=== PATIENT | female | born 1980 ===

== ENCOUNTER 2020-11-27 07:50 | Outpatient (REF) | payer OTHER, SELFPAY ==
--- NOTE | ~2020-11-27 | MM_ITS ---
EXAMINATION: MM SCREENING DIGITAL BREAST TOMOSYNTHESIS, BILATERAL CLINICAL INFORMATION: Screening. Asymptomatic. Age 40. No known family history breast cancer. No prior mammography. The lifetime risk of breast cancer based on the Tyrer-Cuzick Model is 8%. COMPARISON: None (current study represents initial baseline exam). TECHNIQUE: Digital breast tomosynthesis is performed in both the craniocaudal and mediolateral oblique views along with computer-aided detection (CAD). Synthesized 2D images are generated from the tomosynthesis. FINDINGS: The breasts are heterogeneously dense, which may obscure small masses (ACR BI-RADS breast composition Category c). There is no significant mass or architectural abnormality. The axillary and skin contours are unremarkable. There are bilateral similar appearing punctate calcifications in the central and anterior breasts. No three-dimensional grouping or ductal distribution. MM/MM tomosynthesis screening BI IMPRESSION: No mammographic evidence of malignancy. ASSESSMENT: BI-RADS 2: Benign RECOMMENDATION: Routine annual mammography screening. This patient's information was entered into a reminder system with a target due date for their next mammogram.
== END 2020-11-27 07:51 | disposition home or self-care (01) ==
LOC: HO.MAMMO 07:50
PROVIDERS: PCP Internal Medicine; Visit Provider Internal Medicine
DX: Z12.31 Encounter for screening mammogram for malignant neoplasm of breast (principal)
CPT/HCPCS: 77063; 77067

== ENCOUNTER 2020-12-11 10:54 | Outpatient (REF) | payer OTHER, SELFPAY ==
[2020-12-11 11:07] LABS: MANUAL DIFF FLAG NO
[2020-12-11 11:18] LABS: Basophils Absolute Auto 0.1 X10*3/uL (0.0-0.2); Basophils Percent Auto 0.6 % (0-2); Eosinophils Absolute Auto 0.1 X10*3/uL (0.0-0.4); Eosinophils Percent Auto 1.2 % (0-4); Hematocrit 40.1 % (37-47); Hemoglobin 12.8 g/dl (12.0-16.0); Imm Gran Abs Auto 0.03 X10*3/uL (0.00-0.03); Imm Gran Pct Auto 0.3 % (0.0-0.4); Lymphocytes Absolute Auto 2.6 X10*3/uL (1.2-4.9); Mean Corpuscular HGB Conc 31.9 g/dl (31.0-35.0); Mean Corpuscular Hemoglobin 26.1 pg (27.0-33.0); Mean Corpuscular Volume 81.7 fL (80-98); Mean Platelet Volume 9.4 fL (9.4-12.3); Monocytes Absolute Auto 0.5 X10*3/uL (0.1-1.2); Monocytes Percent Auto 5.3 % (2-11); Neutrophils Absolute Auto 5.6 X10*3/uL (2.0-8.3); Neutrophils Percent Auto 63.6 % (45-73); Platelet Count 344 X10*3/uL (160-400); Red Blood Count 4.91 X10*6/uL (4.20-5.50); Red Cell Distribution Width 13.6 % (11.0-16.0); White Blood Count 8.9 X10*3/uL (4.8-10.8)
[2020-12-11 11:30] LABS: Alanine Aminotransferase 20 U/L (0-31); Alkaline Phosphatase 78 U/L (39-117); Anion Gap 9 (12-20); Aspartate Amino Transferase 23 U/L (5-31); Bilirubin Total 0.4 mg/dL (0.0-1.0); Blood Urea Nitrogen 15 mg/dL (9-16); Calcium 8.8 mg/dL (8.4-10.2); Carbon Dioxide 26 mmol/L (22-29); Chloride 109 mmol/L (96-108); Cholesterol 176 mg/dL; Estimated Glomerular Filt Rate > 60; Glucose Fasting 96 mg/dL (60-99); HDL Cholesterol 44 mg/dL; LDL Cholesterol Calculated 123 mg/dl; Potassium 4.5 mmol/L (3.3-5.1); Sodium 139 mmol/L (135-145); Total Protein 6.6 g/dL (6.5-8.0); Triglycerides 46 mg/dL
[2020-12-11 11:52] LABS: TSH reflex Free T4 0.88 uIU/mL (0.32-4.0); Vitamin D 25-OH Total 33.5 ng/mL (>30)
== END 2020-12-11 10:55 | disposition home or self-care (01) ==
LOC: HO.LAB 10:54
PROVIDERS: PCP Internal Medicine; Visit Provider Internal Medicine
DX: Z00.01 Encounter for general adult medical examination with abnormal findings (principal); R61 Generalized hyperhidrosis
CPT/HCPCS: 36415; 80053; 80061; 82306; 84443; 85025

== ENCOUNTER 2022-11-03 10:12 | Outpatient (AMB) | payer OTHER, SELFPAY ==
[2022-11-03 10:15] VITALS: BP 112/88; PULSE 80; O2SAT 100; BMI 32.5
--- NOTE | 2022-11-03 10:15 | A.OFFPC_ITS ---
<Statement entered by Deepali Juarez MD - 12/03/24 15:13> This note has been administratively?closed. Vital Signs 11/03/22 10:15 Height 5 ft 1 in Weight 172 lb 0.2 oz BMI 32.5 BP 112/88 Blood Pressure Location Lt brachial Position Sitting Pulse 80 Pulse Source Pulse Oximeter Pulse Oximetry (%) 100 Oxygen Delivery Method Room Air Intake Visit Reasons: PE Intake Note: Patient is here today for a physical. She had her last mammogram in 2020, reminded to schedule another screening. Goes to her own OBGYN for her routine Pap and pelvic exam, last Pap per patient was in 2020 with normal findings. Currently sees [facility] for treatment of her seasonal allergies.. 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 [facility] Medical History Family history of thyroid disease COVID-19 vaccine dose declined Varicose veins of bilateral lower extremities with other complications Anxiety and depression Family history of Hodgkin's lymphoma History of COVID-19 Allergic rhinitis Pain in left acromioclavicular joint Sweat, sweating, excessive Breast cancer screening by mammogram Surgical History No pertinent past surgical history Family History Father Medical history non-contributory Mother AIDS Paternal Grandmother Diabetes mellitus Hodgkin lymphoma Paternal Grandfather Medical history non-contributory Brother No problems noted. Brother No problems noted. Brother No problems noted. Brother No problems noted. Sister No problems noted. Sister No problems noted. Sister No problems noted. Sister No problems noted. Son No problems noted. Paternal Aunt Diabetes mellitus Social History Housing: House Alcohol intake: current Alcohol intake frequency: a few times a month Patient Tobacco Use Status: Never used Tobacco e-Cigarette/Vaping Use: Never Used Advance Directives: No Advance Directives Information Provided: No Do you have a plan to hurt others: No Plan service: No Current occupational status: employed Cognitive needs: No Hearing needs: No Vision needs: No Female Reproductive History Menstrual Date of last menstrual period: 10/21/22 Date of last pap smear: 12/01/20 History of abnormal pap smear: No Date of Mammogram: 12/28/20 History of abnormal mammogram: No Questionnaire PHQ-9 Over the last 2 weeks, how often have you been bothered by any of the following problems? 1. Little interest or pleasure in doing things: not at all 2. Feeling down, depressed, or hopeless: several days 3. Trouble falling or staying asleep, or sleeping too much: not at all 4. Feeling tired or having little energy: several days 5. Poor appetite or overeating: not at all 6. Feeling bad about yourself - or that you are a failure or have let yourself or your family down: not at all 7. Trouble concentrating on things, such as reading the newspaper or watching television: not at all 8. Moving or speaking so slowly that other people could have noticed. Or the opposite - being so fidgety or restless that you have been moving around a lot more than usual: not at all 9. Thoughts that you would be better off or of hurting yourself in some way: not at all Total score: 2 Depression Screening Interpretation: Positive Source: Developed by Drs. Juan Zimmerman, Clari Crews, Norberto Arreola and colleagues, with an educational paco from [employer]. Thrive Questionnaire Declines Thrive assessment: No Date Thrive assessed: 11/03/22 I am a: Patient What is your living situation today?: I have a steady place to live Within the past 12 months, did the food you bought not last and you didn't have the money to get more?: Never true Within the past 12 months, did you worry whether your food would run out before you got money to buy more?: Never true Do you have trouble paying for medicines?: No Do you have trouble getting transportation to medical appointments?: No Do you have trouble paying your heating and electricity bill?: No Do you have trouble taking care of your child, family member or friend?: No Do you have trouble with day-to-day activities such as bathing, preparing meals, shopping, managing finances, etc.?: No Are you currently unemployed and looking for a job?: No Are you interested in more education?: No AUDIT C Alcohol Use Questionnaire (AUDIT-C) 1. How often do you have a drink containing alcohol?: Monthly or less (social ) 2. How many drinks containing alcohol do you have on a typical day when you are drinking?: 1 or 2 3. How often do you have six or more drinks on one occasion?: Never Total Score: 1 TOPHER-7 AMB Questionnaire TOPHER-7 Date TOPHER - 7 assessed: 11/03/22 Feeling nervous, anxious, or on edge: 1 = Several days Not being able to stop or control worryin = Not at all Worrying too much about different things: 2 = More than half the days Trouble relaxin = Not at all Being so restless that it is hard to sit still: 0 = Not at all Becoming easily annoyed or irritable: 1 = Several days Feeling afraid as if something awful might happen: 1 = Several days Total TOPHER-7 score (0-4 normal; 5-9 mild; 10-14 moderate; 15-21 severe): 5 Source: Developed by Drs. Juan Zimmerman, Clari Crews, Norberto Arreola and colleagues, with an educational paco from [employer]. Review of Systems Const Denies body aches, Denies fatigue, Denies fever(s), Denies headache(s) and Den ies weakness Eyes Denies change in vision ENT Denies dizziness, Denies headache(s) and Denies nasal congestion Card Denies chest pain, Denies lightheadedness, Denies palpitations and Denies dyspnea Resp Denies chest congestion, Denies cough and Denies dyspnea GI Denies abdominal pain, Denies change in bowel habits and Denies heartburn Skin/Breast Denies rash Neuro Denies dizziness, Denies headache(s) and Denies weakness Endo Denies fatigue and Denies palpitations Rylan/Lymph Denies easy bruising Physical exam (Primary Care) Vital Signs: Last Vital Signs Pulse 80 11/03/22 10:15 BP 112/88 11/03/22 10:15 Pulse Ox 100 11/03/22 10:15 Oxygen Delivery Method Room Air 11/03/22 10:15 BMI result Body Mass Index 32.5 Tobacco/Smoking Status: Tobacco use Status Tobacco use date assessed 11/03/22 11/03/22 10:22 Patient Tobacco Use Status Never used Tobacco 11/03/22 10:22 e-Cigarette/Vaping Use Never Used 11/03/22 10:22 PHQ-9: PHQ-9 Score PHQ-9: Total score 2 11/06/22 05:06 Depression Screening Interpretation: Positive Thrive Assessment: Date of Thrive Assessment Date Thrive assessed 11/03/22 11/03/22 10:30 Assessment and Plan Assessment & Plan (1) Adult general medical exam: Code(s): Z00.00 - Encounter for general adult medical examination without abnormal findings Plan: Will check appropriate labs. Advised to do regular dental visit every 6 months and regular eye exams, at least every 2 years. Take adequate calcium in diet and vitamin-D 3 at 2000 IU per cap once a day, in addition to weight-bearing exercises to help maintain good muscle tone and weight control. Instructed to do self-breast exam, and recommended to get yearly mammogram, (2) Family history of Hodgkin's lymphoma: Code(s): Z80.7 - Family history of other malignant neoplasms of lymphoid, hematopoietic and related tissues Plan: Oncology consult, per patient (3) Anxiety and depression: Code(s): F41.9 - Anxiety disorder, unspecified; F32.A - Depression, unspecified (4) Varicose veins of bilateral lower extremities with other complications: Code(s): I83.893 - Varicose veins of bilateral lower extremities with other complications (5) COVID-19 vaccine dose declined: Code(s): Z28.21 - Immunization not carried out because of patient refusal (6) Allergic rhinitis: Comment: Followed by Dr. Mccord at [facility] Code(s): J30.9 - Allergic rhinitis, unspecified Qualifiers: Allergic rhinitis trigger: unspecified Allergic rhinitis seasonality: unspecified Qualified Code(s): J30.9 - Allergic rhinitis, unspecified Plan: Currently followed by software computer specialist (7) Family history of thyroid disease: Code(s): Z83.49 - Family history of other endocrine, nutritional and metabolic diseases Plan: Check TSH and free T4 Orders: Orders Glucose Fasting 11/03/22 Z00.00 - Encounter for general adult medical examination without abnormal findings TSH reflex Free T4 11/03/22 Z83.49 - Family history of other endocrine, nutritional and metabolic diseases Lipid Panel 11/03/22 Z00.00 - Encounter for general adult medical examination without abnormal findings Complete Blood Count Auto Diff 11/03/22 I83.893 - Varicose veins of bilateral lower extremities with other complications, Z80.7 - Family history of other malignant neoplasms of lymphoid, hematopoietic and related tissues, Z00.00 - Encounter for general adult medical examination without abnormal findings Referrals Vascular Surgery Referral I83.893 - Varicose veins of bilateral lower extremities with other complications Hematology & Oncology Referral Z80.7 - Family history of other malignant neoplasms of lymphoid, hematopoietic and related tissues Coding Level of Care Code Est Pt Prev Care 40-64y(14665) Diagnoses Adult general medical exam Z00.00 Family history of Hodgkin's lymphoma Z80.7 Anxiety and depression F41.9; F32.A Varicose veins of bilateral lower extremities with other complications I83.893 COVID-19 vaccine dose declined Z28.21 Allergic rhinitis, unspecified seasonality, unspecified trigger J30.9 Allergic rhinitis trigger: unspecified Allergic rhinitis seasonality: unspecified Family history of thyroid disease Z83.49
== END 2022-11-03 11:26 | disposition home or self-care (01) ==
LOC: HO.HMGC 10:12
PROVIDERS: PCP Internal Medicine; Visit Provider Internal Medicine
DX: Z00.00 Encounter for general adult medical examination without abnormal findings (principal); Z80.7 Family history of other malignant neoplasms of lymphoid, hematopoietic and related tissues; F41.9 Anxiety disorder, unspecified; F32.A Depression, unspecified; I83.893 Varicose veins of bilateral lower extremities with other complications; Z28.21 Immunization not carried out because of patient refusal; J30.9 Allergic rhinitis, unspecified; Z83.49 Family history of other endocrine, nutritional and metabolic diseases
CPT/HCPCS: 99499

== ENCOUNTER 2022-11-03 11:16 | Outpatient (REF) | payer OTHER, SELFPAY ==
[2022-11-03 13:51] LABS: MANUAL DIFF FLAG NO
[2022-11-03 14:03] LABS: Basophils Absolute Auto 0.1 X10*3/uL (0.0-0.2); Basophils Percent Auto 0.7 % (0-2); Eosinophils Absolute Auto 0.2 X10*3/uL (0.0-0.4); Eosinophils Percent Auto 2.9 % (0-4); Hematocrit 40.9 % (37.0-47.0); Imm Gran Abs Auto 0.02 X10*3/uL (0.00-0.03); Imm Gran Pct Auto 0.3 % (0.0-0.4); Lymphocytes Absolute Auto 2.4 X10*3/uL (1.2-4.9); Lymphocytes Percent Auto 31.9 % (20-40); Mean Corpuscular HGB Conc 31.8 g/dl (31.0-35.0); Mean Corpuscular Hemoglobin 25.7 pg (27.0-33.0); Mean Platelet Volume 10.2 fL (9.4-12.3); Monocytes Absolute Auto 0.4 X10*3/uL (0.1-1.2); Monocytes Percent Auto 5.1 % (2-11); Neutrophils Absolute Auto 4.5 x10*3/uL (2.0-8.3); Neutrophils Percent Auto 59.1 % (45-73); Platelet Count 325 X10*3/uL (160-400); Red Blood Count 5.05 X10*6/uL (4.20-5.50); Red Cell Distribution Width 12.9 % (11.0-16.0); White Blood Count 7.6 X10*3/uL (4.8-10.8)
[2022-11-03 14:31] LABS: Cholesterol 181 mg/dL; Glucose Fasting 90 mg/dL (60-99); HDL Cholesterol 45 mg/dL; LDL Cholesterol Calculated 127 mg/dl; Triglycerides 49 mg/dL
== END 2022-11-03 11:17 | disposition home or self-care (01) ==
LOC: HO.HMGCLDS 11:16
PROVIDERS: PCP Internal Medicine; Visit Provider Internal Medicine
DX: Z00.00 Encounter for general adult medical examination without abnormal findings (principal); I83.893 Varicose veins of bilateral lower extremities with other complications; Z80.7 Family history of other malignant neoplasms of lymphoid, hematopoietic and related tissues; Z83.49 Family history of other endocrine, nutritional and metabolic diseases
CPT/HCPCS: 36415; 80061; 82947; 84443; 85025

== ENCOUNTER 2023-03-19 16:53 | Outpatient (REF) | payer OTHER, SELFPAY ==
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
== END 2023-03-19 16:54 | disposition home or self-care (01) ==
LOC: HO.XRAY 16:53
PROVIDERS: PCP Internal Medicine; Visit Provider Physical Medicine & Rehabilitation
DX: M25.512 Pain in left shoulder (principal)
CPT/HCPCS: 73030

== ENCOUNTER 2023-05-31 17:47 | Outpatient (REF) | payer OTHER, SELFPAY ==
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
== END 2023-05-31 17:48 | disposition home or self-care (01) ==
LOC: HO.MRI 17:47
PROVIDERS: PCP Internal Medicine; Visit Provider Physical Medicine & Rehabilitation
DX: M25.512 Pain in left shoulder (principal)
CPT/HCPCS: 73221

== ENCOUNTER 2023-12-05 21:54 | Emergency (ER) | payer OTHER, SELFPAY ==
[2023-12-05 21:57] VITALS: BP 138/87; PULSE 70; RESP 16; TEMP 35.7; O2SAT 100; BMI 30.8
[2023-12-05 22:21] LABS: COVID-19 Test Negative (Negative); IDNOW Serial# 6674DD1D
--- NOTE | 2023-12-06 05:41 | ED.GENADULT ---
HPI - General Adult General Chief complaint: General Medical Stated complaint: covid swab Time Seen by Provider: 12/06/23 05:41 Source: patient Mode of arrival: ambulatory History of Present Illness HPI narrative: 43-year-old female who reports COVID exposure on Sunday and a but denies any symptoms at this time. Related Data Previous Rx's ?Medication ?Instructions ?Recorded ibuprofen 800 mg tablet 800 mg PO Q8H PRN pain 7 days #21 01/31/23 tabs tizanidine 4 mg tablet (Zanaflex) 4 mg PO BID PRN muscle spasticity 01/31/23 5 days #10 tabs Allergies Allergy/AdvReac Type Severity Reaction Status Date / Time No Known Allergies Allergy Verified 12/05/23 21:59 Review of Systems Review of Systems: Pertinent positives and negatives as stated in [facility] Past Medical History Source: nursing notes reviewed Medical History Family history of thyroid disease COVID-19 vaccine dose declined Varicose veins of bilateral lower extremities with other complications Anxiety and depression Family history of Hodgkin's lymphoma History of COVID-19 Allergic rhinitis Pain in left acromioclavicular joint Sweat, sweating, excessive Breast cancer screening by mammogram Surgical History No pertinent past surgical history Family History Family History Father Medical history non-contributory Mother AIDS Paternal Grandmother Diabetes mellitus Hodgkin lymphoma Paternal Grandfather Medical history non-contributory Brother No problems noted. Brother No problems noted. Brother No problems noted. Brother No problems noted. Sister No problems noted. Sister No problems noted. Sister No problems noted. Sister No problems noted. Son No problems noted. Paternal Aunt Diabetes mellitus Social History Social History Housing: House Alcohol intake: current Alcohol intake frequency: a few times a month Patient Tobacco Use Status: Never used Tobacco e-Cigarette/Vaping Use: Never Used Advance Directives: No Advance Directives Information Provided: No Do you have a plan to hurt others: No Plan service: No Current occupational status: employed Cognitive needs: No Hearing needs: No Vision needs: No Physical Exam ED Vital Signs: Vital Signs - 24 hr 12/05/23 21:57 Temperature 96.2 F L Pulse Rate 70 Respiratory Rate 16 Blood Pressure 138/87 Pulse Oximetry 100 Oxygen Delivery Method Room Air BMI result Body Mass Index 30.8 VITAL SIGNS: Reviewed. GENERAL: Well developed, well nourished, in no acute distress. HEAD: Normocephalic/atraumatic EYES: PERRLA, EOMI LUNGS: Normal breath sounds. No adventitious sounds or accessory muscle use. SpO2<100> CARDIOVASCULAR: Regular rate and rhythm without noted murmurs, ABDOMEN: Soft, non-tender, non-distended with bowel sounds. NEUROLOGIC: Alert and oriented x 4. Strength and sensation to light touch were grossly intact x 4. Medical Decision Making Medical Decision Making [facility] Narrative: 43-year-old female with history and clinical presentation of possible exposure, viral testing today is negative for COVID-19, patient was cautioned to retest in the next 2 days. Differential Diagnosis Differential Diagnoses: The differential diagnosis associated with the presentation includes Please see the discussion above Admission/Observation Consideration of admission/observation: Escalation of care including admission/observation considered Please see the discussion above Lab Data [facility] Lab Attestation statement: I reviewed the patient's lab results. Please see the discussion above Labs: Lab Results 12/05/23 Range/Units 22:04 COVID-19 ([place]) Negative (Negative) COVID-19 Clin Com See Note Discharge Plan Discharge Clinical Impression: Exposure to COVID-19 virus Patient Disposition: Home, Self-Care Instructions: COVID-19 (Coronavirus Disease 2019) (ED) Additional Instructions: Although you have tested negative for COVID-19 today, should you experience any viral-like symptoms please retest yourself. Prescriptions: No Action ibuprofen 800 mg tablet 800 mg PO Q8H PRN (Reason: pain) 7 Days Qty: 21 0RF tizanidine [Zanaflex] 4 mg tablet 4 mg PO BID PRN (Reason: muscle spasticity) 5 Days Qty: 10 0RF Interventions: LWBS Worksheet Last Done: 12/06/23 02:21 Print Language: Swedish
[2023-12-06 06:05] VITALS: BP 134/78; PULSE 74; RESP 16; TEMP 36.8; O2SAT 100
[2023-12-06 06:06] VITALS: BP 134/78; PULSE 74; RESP 16; TEMP 36.8; O2SAT 100
== END 2023-12-06 06:06 | disposition home or self-care (01) ==
PROVIDERS: Emergency Medicine; Emergency Provider Student in an Organized Health Care Education/Training Program; PCP Internal Medicine
DX: Z11.52 Encounter for screening for COVID-19 (principal); Z79.899 Other long term (current) drug therapy
CPT/HCPCS: 87635; 99283

== ENCOUNTER 2024-06-16 08:33 | Outpatient (AMB) | payer OTHER, SELFPAY ==
[2024-06-16 08:37] VITALS: BP 128/60; PULSE 75; O2SAT 100; BMI 33.6
--- NOTE | 2024-06-16 08:37 | MHC.PC.OV ---
Vital Signs 06/16/24 08:37 Height 5 ft 1 in Weight 178 lb BMI 33.6 BP 128/60 Blood Pressure Location Lt brachial Position Sitting Pulse 75 Pulse Source Pulse Oximeter Pulse Oximetry (%) 100 Oxygen Delivery Method Room Air Intake Visit Reasons: PE Intake Note: Pt is here today for her PE: Last mammogram 11/27/20 Is last menstrual period known: Yes Last menstrual period: 06/06/24 Allergies No Known Allergies Allergy (Verified 06/16/24 09:08) Medication List - Last Reconciled 06/16/24 by Deepali Juarez MD ibuprofen 800 mg PO Q8H PRN 7 days Tobacco use date assessed: 06/16/24 Dental Screening Dental Screen Date: 06/16/24 HPI PE HPI Details 43-year-old lady here today for her physical exam. She is overdue for screening mammogram, last done in 2020 with benign findings. She states that she is up-to-date with her cervical cancer screening and pelvic exam, [facility] in [place]. Complains of pain on movement at the base of her left thumb, no history of trauma reported . She also complains of recurrent pain in her left flank, accompanied by any urinary symptoms, no history of trauma. She has not been taking any medication for this complaint. [facility] Medical History (Updated 06/22/24 @ 20:05 by Deepali Juarez MD) Obesity (BMI 30.0-34.9) Family history of thyroid disease COVID-19 vaccine dose declined Varicose veins of bilateral lower extremities with other complications Anxiety and depression Family history of Hodgkin's lymphoma History of COVID-19 Allergic rhinitis Breast cancer screening by mammogram Surgical History No pertinent past surgical history Family History Father Medical history non-contributory Mother AIDS Paternal Grandmother Diabetes mellitus Hodgkin lymphoma Paternal Grandfather Medical history non-contributory Brother No problems noted. Brother No problems noted. Brother No problems noted. Brother No problems noted. Sister No problems noted. Sister No problems noted. Sister No problems noted. Sister No problems noted. Son No problems noted. Paternal Aunt Diabetes mellitus Social History Housing: House Alcohol intake: current Alcohol intake frequency: a few times a month Patient Tobacco Use Status: Never used Tobacco e-Cigarette/Vaping Use: Never Used service: No Current occupational status: employed Cognitive needs: No Hearing needs: No Vision needs: No Female Reproductive History Menstrual Date of last menstrual period: 06/06/24 Other: [facility] and pelvic exam Questionnaire PHQ-9 Over the last 2 weeks, how often have you been bothered by any of the following problems? 1. Little interest or pleasure in doing things: not at all 2. Feeling down, depressed, or hopeless: not at all 3. Trouble falling or staying asleep, or sleeping too much: not at all 4. Feeling tired or having little energy: not at all 5. Poor appetite or overeating: not at all 6. Feeling bad about yourself - or that you are a failure or have let yourself or your family down: not at all 7. Trouble concentrating on things, such as reading the newspaper or watching television: not at all 8. Moving or speaking so slowly that other people could have noticed. Or the opposite - being so fidgety or restless that you have been moving around a lot more than usual: not at all 9. Thoughts that you would be better off or of hurting yourself in some way: not at all Total score: 0 Depression Screening Interpretation: Negative Depression Screening Done: Yes 95322 - PHQ-9 Billing: Yes Source: Developed by Drs. Juan Zimmerman, Clari Crews, Norberto Arreola and colleagues, with an educational paco from [employer]. Thrive Questionnaire Date Thrive assessed: 06/16/24 I am a: Patient What is your living situation today?: I have a steady place to live Within the past 12 months, did the food you bought not last and you didn't have the money to get more?: Never true Within the past 12 months, did you worry whether your food would run out before you got money to buy more?: Never true Do you have trouble paying for medicines?: No Do you have trouble getting transportation to medical appointments?: No Do you have trouble paying your heating and electricity bill?: No Do you have trouble taking care of your child, family member or friend?: No Do you have trouble with day-to-day activities such as bathing, preparing meals, shopping, managing finances, etc.?: No Are you currently unemployed and looking for a job?: No Are you interested in more education?: No THRIVE Score: 0 AUDIT C Alcohol Use Questionnaire (AUDIT-C) 1. How often do you have a drink containing alcohol?: Monthly or less 2. How many drinks containing alcohol do you have on a typical day when you are drinking?: 1 or 2 3. How often do you have six or more drinks on one occasion?: Never Total Score: 1 TOPHER-7 AMB Questionnaire TOPHER-7 Date TOPHER - 7 assessed: 06/16/24 Feeling nervous, anxious, or on edge: 0 = Not at all Not being able to stop or control worryin = Not at all Worrying too much about different things: 0 = Not at all Trouble relaxin = Not at all Being so restless that it is hard to sit still: 0 = Not at all Becoming easily annoyed or irritable: 1 = Several days Feeling afraid as if something awful might happen: 0 = Not at all Total TOPHER-7 score (0-4 normal; 5-9 mild; 10-14 moderate; 15-21 severe): 1 Source: Developed by Drs. Juan Zimmerman, Clari Crews, Norberto Arreola and colleagues, with an educational pcao from [employer]. TOPHER-7 Assessment Billing TOPHER-7 Assessment Tool: TOPHER-7 Assessment 92316 Review of Systems Const Denies body aches, Denies fatigue, Denies fever(s), Denies headache(s) and Denies weakness Eyes Denies change in vision ENT Denies dizziness, Denies headache(s) and Denies nasal congestion Card Denies chest pain, Denies lightheadedness, Denies palpitations and Denies dyspnea Resp Denies chest congestion, Denies cough and Denies dyspnea GI Denies abdominal pain, Denies change in bowel habits and Denies heartburn Reports no additional complaints Musc Reports no additional complaints Skin/Breast Denies rash Neuro Denies dizziness, Denies headache(s) and Denies weakness Psych Reports no additional complaints Endo Denies fatigue and Denies palpitations Rylan/Lymph Denies easy bruising Aller/Immun Reports no additional complaints Physical exam (Primary Care) Vital Signs: Last Vital Signs Pulse 75 06/16/24 08:37 BP 128/60 06/16/24 08:37 Pulse Ox 100 06/16/24 08:37 Oxygen Delivery Method Room Air 06/16/24 08:37 BMI result Body Mass Index 33.6 Tobacco/Smoking Status: Tobacco use Status Tobacco use date assessed 06/16/24 06/16/24 08:58 Patient Tobacco Use Status Never used Tobacco 06/16/24 08:42 e-Cigarette/Vaping Use Never Used 06/16/24 08:42 PHQ-9: PHQ-9 Score PHQ-9: Total score 0 06/16/24 09:30 Depression Screening Interpretation: Negative Thrive Assessment: Date of Thrive Assessment Date Thrive assessed 06/16/24 06/16/24 08:58 Advance Care Planning discussion: Completed/Scanned Date of discussion: 06/16/24 Who was present: Patient Forms completed: Health Care Proxy Time spent: 16-45 minutes Actual minutes spent: 3 Const Other: Alert oriented x3, no acute distress noted ambulatory normal gait Orientation/consciousness: patient oriented x3 HENMT Ears: hearing grossly normal bilaterally, TM's normal bilaterally and EAC's normal General nose exam: Normal external nose present and No nasal discharge present Face and sinus: Yes sinuses nontender and Yes face symmetric Mouth: Normal oral and palatal mucosa present and moist mucous membranes Eyes General: appearance normal, both eyes and all related structures Neck Other: Supple no lymphadenopathy, thyroid gland nonpalpable Chest Chest palpation & inspection: normal inspection of the chest Breast/axilla palpation: normal palpation of the breasts Resp Auscultation: clear to auscultation bilaterally Cardio Other: S1-S2 present regular rate and rhythm GI Inspection: Yes normal to inspection General: Yes no CVA tenderness Back/Spine/Pelvis Back: no CVA tenderness and No back tenderness Thoracic/Lumbar Spine: thoracic and lumbar spine normal to inspection, thoraco-lumbar ROM normal and straight leg raise negative bilaterally Skin General skin exam: no rashes or lesions noted Neuro General: patient oriented x3, gait normal, Normal light touch and pain sensation and no focal motor deficits Extrem Other: Tenderness on palpation over left thumb base, no gross bone deformity or joint swelling seen Psych Appearance: grossly normal and well kempt Mental Status: mental status grossly normal Speech and movement: Normal speech and movement present Affect: normal affect Thought process: Normal thought process present Thought content: Normal thought content present Office Procedures Flu Questionnaire Does the patient have a severe egg allergy?: No Does the patient have severe life threatening allergies?: No Does the patient have a fever or illness today?: No Has the patient ever had Guillain-[place] Syndrome?: No Has the patient ever had any past reaction to a flu shot?: No Immunizations Fluarix Triv [id number] (PF) 45 mcg (15 mcg x 3)/0.5 mL IM syringe Performing Provider: Deepali Juarez MD [place] [facility] [place] [facility] Administered by: Christine Curran CMA on 06/16/24 09:30 Dose Route Admin Location Dispensed Lot Number Expiration Date NDC Russian Language Instructor 0.5 mL IM Left Deltoid 0.5 mL [id number] 01/26/25 [id number] [employer] VIS Given Date VIS Provided VIS Publication Date 06/16/24 Single Vaccine 21 Eligibility Eligibility Date Funding Source Not [facility] Eligible 06/16/24 Private Coding Level of Care Code Est Pt Prev Care 40-64y(26254) Diagnoses Annual visit for general adult medical examination with abnormal findings Z00.01 Left flank pain R10.9 Family history of thyroid disease Z83.49 COVID-19 vaccine dose declined Z28.21 Thumb tendonitis M77.8 Obesity (BMI 30.0-34.9) E66.811 Advanced directives, counseling/discussion Z71.89 Additional Codes TOPHER-7 Assessment Billing - TOPHER-7 Assessment Tool: TOPHER-7 Assessment 52825 ([id number]) PHQ-9 - 46072 - PHQ-9 Billing: Yes ([id number]) Vital Signs *Quality* - Advance Care Planning discussion: Completed/Scanned ([id number]) Vital Signs *Quality* - Time spent: 16-45 minutes ([id number]) Assessment & Plan Assessment & Plan (1) Annual visit for general adult medical examination with abnormal findings: Code(s): Z00.01 - Encounter for general adult medical examination with abnormal findings Plan: Will check appropriate labs. Continue regular dental visit every 6 months and regular eye exams, at least every 2 years. Take adequate calcium in diet and vitamin-D 3 at 2000 IU per cap once a day, in addition to weight-bearing exercises to help maintain good muscle tone and weight control. Instructed to do self-breast exam, and recommended to get yearly mammogram, ordered . Flu vaccine given today, declined COVID booster. [facility], will request copy of latest Pap smear results (2) Left flank pain: Code(s): R10.9 - Unspecified abdominal pain Plan: Left renal ultrasound (3) Family history of thyroid disease: Code(s): Z83.49 - Family history of other endocrine, nutritional and metabolic diseases Category: Medical Plan: Will check TSH with free T4 (4) COVID-19 vaccine dose declined: Code(s): Z28.21 - Immunization not carried out because of patient refusal Category: Medical Plan: Declined COVID vaccine booster (5) Thumb tendonitis: Code(s): M77.8 - Other enthesopathies, not elsewhere classified Plan: Advised to rest joint, try diclofenac gel instead of taking ibuprofen, massage gel to affected area to 2 3 times a day as needed for pain relief (6) Obesity (BMI 30.0-34.9): Code(s): E66.811 - Obesity, class 1 Category: Medical Plan: Discussed need to increase activity and weight reduction. Recommended focusing on improving health instead of dieting. Mediterranean diet is a healthy diet that helps, limit food high in fat, sugar, and calories. Eat slowly, pay attention to portion sizes, plan your meals ahead of time, start regular physical activity, at least 150 minutes of moderate intensity exercise, or 90 minutes per week of vigorous exercise. Keeping a food diary, tracking what you eat and your physical activity can help assess what improvements you can make. There are many health problems associated with being overweight/obese, so it is important to improve your diet and exercise. There are medications and surgical options available, but Lifestyle changes are the 1st step. (7) Advanced directives, counseling/discussion: Code(s): Z71.89 - Other specified counseling Plan: Initiated the conversation about Advanced Directives. Advanced Directives help patients prepare for current and future decisions about their medical treatment and place of care. Discussed with patient that it is a process where a patients current condition and prognosis are reviewed, their wishes for information regarding their illness are elicited, and likely medical dilemmas are presented and options discussed. Healthcare proxy form completed today. The form can be amended as needed, reviewed yearly and make changes as needed Orders: Orders US renal LT 06/16/24 R10.9 - Unspecified abdominal pain TSH reflex Free T4 06/16/24 E66.811 - Obesity, class 1, Z00.01 - Encounter for general adult medical examination with abnormal findings, Z13.1 - Encounter for screening for diabetes mellitus, Z13.220 - Encounter for screening for lipoid disorders, Z83.49 - Family history of other endocrine, nutritional and metabolic diseases Aspartate Amino Transferase 06/16/24 E66.811 - Obesity, class 1, Z00.01 - Encounter for general adult medical examination with abnormal findings, Z13.1 - Encounter for screening for diabetes mellitus, Z13.220 - Encounter for screening for lipoid disorders, Z83.49 - Family history of other endocrine, nutritional and metabolic diseases Basic Metabolic Panel Fasting 06/16/24 E66.811 - Obesity, class 1, Z00.01 - Encounter for general adult medical examination with abnormal findings, Z13.1 - Encounter for screening for diabetes mellitus, Z13.220 - Encounter for screening for lipoid disorders, Z83.49 - Family history of other endocrine, nutritional and metabolic diseases Hemoglobin and Hematocrit 06/16/24 E66.811 - Obesity, class 1, Z00.01 - Encounter for general adult medical examination with abnormal findings, Z13.1 - Encounter for screening for diabetes mellitus, Z13.220 - Encounter for screening for lipoid disorders, Z83.49 - Family history of other endocrine, nutritional and metabolic diseases Lipid Panel 06/16/24 E66.811 - Obesity, class 1, Z00.01 - Encounter for general adult medical examination with abnormal findings, Z13.1 - Encounter for screening for diabetes mellitus, Z13.220 - Encounter for screening for lipoid disorders, Z83.49 - Family history of other endocrine, nutritional and metabolic diseases MM tomosynthesis screening BI 06/16/24 Z12.31 - Encounter for screening mammogram for malignant neoplasm of breast Alanine Aminotransferase 06/16/24 E66.811 - Obesity, class 1, Z00.01 - Encounter for general adult medical examination with abnormal findings, Z13.1 - Encounter for screening for diabetes mellitus, Z13.220 - Encounter for screening for lipoid disorders, Z83.49 - Family history of other endocrine, nutritional and metabolic diseases Influenza [id number] Immunization 06/16/24 Z23 - Encounter for immunization
== END 2024-06-16 09:36 | disposition home or self-care (01) ==
PROVIDERS: PCP Internal Medicine; Visit Provider Internal Medicine
DX: Z00.00 Encounter for general adult medical examination without abnormal findings (principal); R10.9 Unspecified abdominal pain; Z68.33 Body mass index [BMI] 33.0-33.9, adult; E66.811 Obesity, class 1; Z83.49 Family history of other endocrine, nutritional and metabolic diseases; Z28.21 Immunization not carried out because of patient refusal; M77.8 Other enthesopathies, not elsewhere classified

== ENCOUNTER → 2024-06-16 08:33 | Outpatient (BNVA) | payer OTHER, SELFPAY | PROVIDERS: PCP Internal Medicine; Visit Provider Internal Medicine | DX: Z00.01 Encounter for general adult medical examination with abnormal findings (principal); Z23 Encounter for immunization; R10.9 Unspecified abdominal pain; M77.8 Other enthesopathies, not elsewhere classified; E66.811 Obesity, class 1; Z68.33 Body mass index [BMI] 33.0-33.9, adult; Z83.49 Family history of other endocrine, nutritional and metabolic diseases; Z71.89 Other specified counseling; Z28.21 Immunization not carried out because of patient refusal | CPT/HCPCS: 90471; 90656; 96127 ==

== ENCOUNTER 2024-07-31 06:55 | Outpatient (REF) | payer OTHER, SELFPAY ==
[2024-07-31 07:39] LABS: Hematocrit 39.8 % (37.0-47.0); Hemoglobin 12.6 g/dl (12.0-16.0)
[2024-07-31 08:32] LABS: Alanine Aminotransferase 23 U/L (0-31); Anion Gap 12 (12-20); Aspartate Amino Transferase 22 U/L (5-31); Blood Urea Nitrogen 21 mg/dL (9-16); Carbon Dioxide 23 mmol/L (22-29); Chloride 108 mmol/L (96-108); Cholesterol 193 mg/dL (<200); Estimated Glomerular Filt Rate > 60; Glucose Fasting 98 mg/dL (60-99); HDL Cholesterol 52 mg/dL (>40); LDL Cholesterol Calculated 122 mg/dL (<100); Potassium 4.3 mmol/L (3.3-5.1); Sodium 139 mmol/L (135-145); Triglycerides 99 mg/dL (<150)
[2024-07-31 08:46] LABS: TSH reflex Free T4 1.47 uIU/mL (0.32-4.0)
== END 2024-07-31 06:56 | disposition home or self-care (01) ==
LOC: HO.LAB 06:55
PROVIDERS: PCP Internal Medicine; Visit Provider Internal Medicine
DX: Z00.01 Encounter for general adult medical examination with abnormal findings (principal); Z13.220 Encounter for screening for lipoid disorders; Z13.1 Encounter for screening for diabetes mellitus; Z83.49 Family history of other endocrine, nutritional and metabolic diseases; E66.811 Obesity, class 1
CPT/HCPCS: 36415; 80048; 80061; 84443; 84450; 84460; 85014; 85018

== ENCOUNTER 2024-08-08 13:10 | Outpatient (REF) | payer OTHER, SELFPAY ==
--- NOTE | ~2024-08-08 | US_ITS ---
EXAMINATION: US RETROPERITONEAL LIMITED, LEFT(RENAL ONLY) CLINICAL INFORMATION: Abdominal and left flank pain.. COMPARISON: None available. TECHNIQUE: Real-time imaging of the left kidney. FINDINGS: LEFT KIDNEY: 11.1 x 5.3 x 3.9 cm (SAG x AP x TRV). The kidney is normal in size, contour, and echogenicity. Renal cortical thickness is normal. No suspicious focal parenchymal lesions. No hydronephrosis. Tiny echogenic foci are present in the lower pole, without shadowing, nonspecific. Cannot exclude tiny nonobstructing calculi. US/US renal LT IMPRESSION: 1. Tiny echogenic foci in the lower pole of the left kidney, possibly representing tiny calculi but nonspecific. No hydronephrosis or parenchymal mass. Left kidney otherwise normal. Electronically signed by: Brendan Carmona MD 08/12/2024 09:24 AM [facility]
== END 2024-08-08 13:11 | disposition home or self-care (01) ==
LOC: HO.US 13:10
PROVIDERS: PCP Internal Medicine; Visit Provider Internal Medicine
DX: R10.9 Unspecified abdominal pain (principal)
CPT/HCPCS: 76775

== ENCOUNTER → 2024-08-08 13:13 | Outpatient (BNV) | payer OTHER, SELFPAY | PROVIDERS: PCP Internal Medicine; Visit Provider Radiology Diagnostic Radiology | DX: R10.9 Unspecified abdominal pain (principal) | CPT/HCPCS: 76775 ==

== ENCOUNTER 2024-08-15 09:23 | Outpatient (AMB) | payer OTHER, SELFPAY ==
--- NOTE | 2024-08-15 09:20 | A.OFFPC_ITS ---
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 lamar [phone] Intake Note: Pt is having a telehealth visit to request a referral for a senior ui web developer Allergies No Known Allergies Allergy (Verified 08/15/24 09:48) Medication List - Last Reconciled 08/15/24 by Deepali Juarez MD cetirizine (Zyrtec) 10 mg PO DAILY PRN fluticasone propionate 50 mcg/actuation (Flonase Allergy Relief) 1 spray intranasal DAILY ibuprofen 800 mg PO Q8H PRN 7 days Tobacco use date assessed: 08/15/24 Dental Screening Dental Screen Date: 08/15/24 Did you have a dental visit in the last 12 months?: Yes Did you have a dental problem in the last 6 months where you did not have access to dental care?: Yes Was dental information given to patient?: Patient has dentist HPI referral for senior ui web developer lamar [phone] HPI Details - The patient is a 44-year-old female pr esenting with concerns of allergic contact dermatitis and allergic rhinitis, exacerbated by exposure to a pet cat. - She experiences immediate skin reactio ns, including burning, itching, and hives, upon contact with the cat, with symptoms subsiding after washing. - These allergic manifestations are more severe since acquiring the cat but were previously present, though milder. - Despite various antihistamines, she st herbert with sustained symptom relief and requires medication rotation. - No baseline asthma is present, though she experiences wheezing and chest tightness when allergies are severe. - She has a history of allergy evaluatio n but was never started on immunotherapy due to possible past financial barriers. - Current symptoms are partially managed by intranasal corticosteroids and antihistamines, with interest in pursuing allergy shots now planned and financially viable. [facility] Medical History (Updated 08/15/24 @ 10:00 by Deepali Juarez MD) Obesity (BMI 30.0-34.9) Family history of thyroid disease COVID-19 vaccine dose declined Varicose veins of bilateral lower extremities with other complications Anxiety and depression Family history of Hodgkin's lymphoma History of COVID-19 Allergic rhinitis Breast cancer screening by mammogram Surgical History No pertinent past surgical history Family History Father Medical history non-contributory Mother AIDS Paternal Grandmother Diabetes mellitus Hodgkin lymphoma Paternal Grandfather Medical history non-contributory Brother No problems noted. Brother No problems noted. Brother No problems noted. Brother No problems noted. Sister No problems noted. Sister No problems noted. Sister No problems noted. Sister No problems noted. Son No problems noted. Paternal Aunt Diabetes mellitus Social History Housing: House Alcohol intake: current Alcohol intake frequency: a few times a month Patient Tobacco Use Status: Never used Tobacco e-Cigarette/Vaping Use: Never Used service: No Current occupational status: employed Cognitive needs: No Hearing needs: No Vision needs: No Questionnaire Thrive Questionnaire Date Thrive assessed: 08/15/24 I am a: Patient What is your living situation today?: I have a steady place to live Within the past 12 months, did the food you bought not last and you didn't have the money to get more?: Never true Within the past 12 months, did you worry whether your food would run out before you got money to buy more?: Never true Do you have trouble paying for medicines?: No Do you have trouble getting transportation to medical appointments?: No Do you have trouble paying your heating and electricity bill?: No Do you have trouble taking care of your child, family member or friend?: No Do you have trouble with day-to-day activities such as bathing, preparing meals, shopping, managing finances, etc.?: No Are you currently unemployed and looking for a job?: No Are you interested in more education?: No THRIVE Score: 0 AUDIT C Alcohol Use Questionnaire (AUDIT-C) 1. How often do you have a drink containing alcohol?: Monthly or less 2. How many drinks containing alcohol do you have on a typical day when you are drinking?: 1 or 2 3. How often do you have six or more drinks on one occasion?: Never Total Score: 1 TOPHER-7 AMB Questionnaire TOPHER-7 Date TOPHER - 7 assessed: 06/16/24 Feeling nervous, anxious, or on edge: 0 = Not at all Not being able to stop or control worryin = Not at all Worrying too much about different things: 0 = Not at all Trouble relaxin = Not at all Being so restless that it is hard to sit still: 0 = Not at all Becoming easily annoyed or irritable: 0 = Not at all Feeling afraid as if something awful might happen: 0 = Not at all Total TOPHER-7 score (0-4 normal; 5-9 mild; 10-14 moderate; 15-21 severe): 0 Source: Developed by Drs. Juan Zimmerman, Clari Crews, Norberto Arreola and colleagues, with an educational paco from [employer]. Review of Systems Const All systems reviewed & are unremarkable except as noted in HPI and below Physical exam (Primary Care) Tobacco/Smoking Status: Tobacco use Status Tobacco use date assessed 08/15/24 08/15/24 09:23 Patient Tobacco Use Status Never used Tobacco 08/15/24 09:23 e-Cigarette/Vaping Use Never Used 08/15/24 09:23 Thrive Assessment: Date of Thrive Assessment Date Thrive assessed 08/15/24 08/15/24 09:23 Telehealth Telehealth Telehealth Platform: [employer] Location of provider rendering services: practice address Location of patient: address on file Patient Identification confirmed using: Name, : Yes Telehealth method: video Patient verbally consented to treatment: Yes Patient verbally consented to billing insurance company: Yes Patient informed of any privacy concerns related to visit: Yes Minutes spent on Phone/Video with Pt.: 15 Coding Level of Care Code Tele Est Pt Level 3 (64851) Diagnoses Allergic rhinitis, unspecified seasonality, unspecified trigger J30.9 Allergic rhinitis seasonality: unspecified Allergic rhinitis trigger: unspecified Assessment & Plan Assessment & Plan (1) Allergic rhinitis: Code(s): J30.9 - Allergic rhinitis, unspecified Category: Medical Qualifiers: Allergic rhinitis seasonality: unspecified Allergic rhinitis trigger: unspecified Qualified Code(s): J30.9 - Allergic rhinitis, unspecified Plan: - Continue taking Montelukast (10 mg) every morning. - Alternate between Cetirizine and Loratadine as needed if symptoms persist. - Use Azelastine nasal spray twice daily and avoid concurrent use with Fluticasone due to combined corticosteroids. - Schedule and attend allergy immunotherapy appointments with Dr. Cassidy. - Contact the office if an appointment is not arranged within ten days. - Seek urgent care if wheezing or chest tightness worsens. - Keep antihistamine medications on rotation to improve efficacy. - Follow up as advised or if new or worsening symptoms occur. Orders: Referrals Allergy & Immunology Referral J30.9 - Allergic rhinitis, unspecified Medications: New montelukast 10 mg PO DAILY 30 tabs 3RF J30.9 - Allergic rhinitis, unspecified azelastine-fluticasone 137-50 mcg/spray administer into each nostril 1 spray intranasal BID 23 grams 1RF
== END 2024-08-15 10:57 | disposition home or self-care (01) ==
LOC: HO.HMCC 09:23
PROVIDERS: PCP Internal Medicine; Visit Provider Internal Medicine
DX: J30.9 Allergic rhinitis, unspecified (principal)

== ENCOUNTER → 2024-08-15 09:23 | Outpatient (BNVA) | payer OTHER, SELFPAY | PROVIDERS: PCP Internal Medicine; Visit Provider Internal Medicine ==

== ENCOUNTER 2024-08-18 07:22 | Outpatient (REF) | payer OTHER, SELFPAY | END 2024-08-18 07:23 | disposition home or self-care (01) | LOC: HO.MAMMO 07:22 | PROVIDERS: PCP Internal Medicine; Visit Provider Internal Medicine | DX: Z12.31 Encounter for screening mammogram for malignant neoplasm of breast (principal) | CPT/HCPCS: 77063; 77067 ==

== ENCOUNTER → 2024-08-18 07:45 | Outpatient (BNV) | payer OTHER, SELFPAY | PROVIDERS: PCP Internal Medicine; Visit Provider Internal Medicine | DX: Z12.31 Encounter for screening mammogram for malignant neoplasm of breast (principal) | CPT/HCPCS: 77063; 77067 ==

== ENCOUNTER 2025-06-30 08:20 | Outpatient (AMB) | payer OTHER, SELFPAY ==
--- OUTSIDE RECORDS SUMMARY | 2025-06-30 08:24 | XMS_ITS | Clinical Summary ---
Author Organization [facility] ity Address [address] [place] [address] Care Team Providers Care Final Assembly Inspector Name Role Phone Unavailable Primary Care Provider Unavailabl e Social History Tobacco Use Types Packs/Day Years Used Date Smoking Tobacco: Never Assessed Comments Unknown Sex and Gender Information Value Date Recorded Sex Assigned at Not on file Legal Sex Female 5:41 PM EST Gender Identity Not on file Sexual Orientation Not on file Plan of Treatment Health Maintenance Due Date Last Done Comments Breast Cancer Screening 1980 DTaP,Tdap,and Td Vaccines (1 - Tdap) 1999 Hepatitis B Vaccines (1 of 3 - 19+ 3-dose series) 1999 Cervical Cancer Screening: P ap Smear 2001 HPV Vaccines (1 - 3-dose SCD M series) 2007 Depression Screening 07/30/2024 COVID-19 Vaccine ( - 2024-2 6 season) 2025 Influenza Vaccine (#1) 2025 RSV Immunization Adult Patie nts (1 - 1-dose 75+ series) 2055 HIB Vaccines Aged Out No longer eligi ble based on patient's age to complete this topic Hepatitis A Vaccines Aged Out No long er eligible based on patient's age to complete this topic IPV Vaccines Aged Out No longer eligi ble based on patient's age to complete this topic MMR Vaccines Aged Out No longer eligi ble based on patient's age to complete this topic Meningococcal ACWY Vaccine Aged Out N o longer eligible based on patient's age to complete this topic Meningococcal B Vaccine Aged Out No l onger eligible based on patient's age to complete this topic Pneumococcal Vaccine: Pediat rics (0 to 5 Years) and At-Risk Patients (6 to 49 Years) Aged Out No longer eligible b ased on patient's age to complete this topic RSV Immunization Patients Un navin 20 months Aged Out No longer eligible b ased on patient's age to complete this topic Varicella Vaccines Aged Out No longer eligible based on patient's age to complete this topic
--- OUTSIDE RECORDS SUMMARY | 2025-06-30 08:24 | XMS_ITS ---
Author Name [facility] Organization Unknown History of Medication Use Medication Directions Dispensed Refills Start Date End Date Stat active Encounters Encounter Type Encounter Reason Primary Diagnosis Location Date Ambulatory TBE Headache, unspecified Priori ty Urgent Care ([facility]) 04/29/2025 Care Team Organization Name Specialty Phone Email Start Date End Da te [facility] 04/29/2025 [facility] 04/29/2025
--- NOTE | 2025-06-30 08:30 | A.OFFPC_ITS ---
Vital Signs 06/30/25 08:36 Height 5 ft 1 in Weight 180 lb BMI 34.0 BP 100/70 Blood Pressure Location Lt brachial Position Sitting Respiration 16 Pulse 75 Pulse Source Pulse Oximeter Temp 98.1 F Temp Source Oral Pulse Oximetry (%) 98 Oxygen Delivery Method Room Air Intake Visit Reasons: Annual PE Intake Note: Pt is here today for PE: last mammogram 08/18/24 Transmitter Operator Required: No Is last menstrual period known: Yes Last menstrual period: 06/04/25 Allergies No Known Allergies Allergy (Verified 06/30/25 09:08) Medication List - Last Reconciled 06/30/25 by Deepali Juarez MD azelastine-fluticasone 137-50 mcg/spray 1 spray intranasal BID ibuprofen 800 mg PO Q8H PRN 7 days montelukast 10 mg PO DAILY Tobacco use date assessed: 06/30/25 Dental Screening Dental Screen Date: 06/30/25 Did you have a dental visit in the last 12 months?: No Did you have a dental problem in the last 6 months where you did not have access to dental care?: No Was dental information given to patient?: Patient has dentist [facility] Medical History Obesity (BMI 30.0-34.9) Family history of thyroid disease COVID-19 vaccine dose declined Varicose veins of bilateral lower extremities with other complications Anxiety and depression Family history of Hodgkin's lymphoma History of COVID-19 Allergic rhinitis Breast cancer screening by mammogram Surgical History No pertinent past surgical history Family History Father Medical history non-contributory Mother AIDS Paternal Grandmother Diabetes mellitus Hodgkin lymphoma Paternal Grandfather Medical history non-contributory Brother No problems noted. Brother No problems noted. Brother No problems noted. Brother No problems noted. Sister No problems noted. Sister No problems noted. Sister No problems noted. Sister No problems noted. Son No problems noted. Paternal Aunt Diabetes mellitus Social History Housing: House Alcohol intake: current Alcohol intake frequency: a few times a month Patient Tobacco Use Status: Never used Tobacco e-Cigarette/Vaping Use: Never Used service: No Current occupational status: employed Cognitive needs: No Hearing needs: No Vision needs: No Female Reproductive History Menstrual Date of last menstrual period: 06/04/25 Questionnaire PHQ-9 Over the last 2 weeks, how often have you been bothered by any of the following problems? 1. Little interest or pleasure in doing things: not at all 2. Feeling down, depressed, or hopeless: not at all 3. Trouble falling or staying asleep, or sleeping too much: not at all 4. Feeling tired or having little energy: not at all 5. Poor appetite or overeating: not at all 6. Feeling bad about yourself - or that you are a failure or have let yourself or your family down: not at all 7. Trouble concentrating on things, such as reading the newspaper or watching television: not at all 8. Moving or speaking so slowly that other people could have noticed. Or the opposite - being so fidgety or restless that you have been moving around a lot more than usual: not at all 9. Thoughts that you would be better off or of hurting yourself in some way: not at all Total score: 0 Source: Developed by Drs. Juan Zimmerman, Clari Crews, Norberto Arreola and colleagues, with an educational paco from [employer]. Thrive Questionnaire Date Thrive assessed: 08/15/24 I am a: Patient What is your living situation today?: I have a steady place to live Within the past 12 months, did the food you bought not last and you didn't have the money to get more?: Never true Within the past 12 months, did you worry whether your food would run out before you got money to buy more?: Never true Do you have trouble paying for medicines?: No Do you have trouble getting transportation to medical appointments?: No Do you have trouble paying your heating and electricity bill?: No Do you have trouble taking care of your child, family member or friend?: No Do you have trouble with day-to-day activities such as bathing, preparing meals, shopping, managing finances, etc.?: No Are you currently unemployed and looking for a job?: No Are you interested in more education?: No Please select the resources that you would like help with: None Currently or been in a relationship where the following occur: No concerns reported THRIVE Score: 0 AUDIT C Alcohol Use Questionnaire (AUDIT-C) 1. How often do you have a drink containing alcohol?: Never Total Score: 0 TOPHER-7 AMB Questionnaire TOPHER-7 Date TOPHER - 7 assessed: 06/16/24 Feeling nervous, anxious, or on edge: 0 = Not at all Not being able to stop or control worryin = Not at all Worrying too much about different things: 0 = Not at all Trouble relaxin = Not at all Being so restless that it is hard to sit still: 0 = Not at all Becoming easily annoyed or irritable: 0 = Not at all Feeling afraid as if something awful might happen: 0 = Not at all Total TOPHER-7 score (0-4 normal; 5-9 mild; 10-14 moderate; 15-21 severe): 0 Source: Developed by Drs. Juan Zimmerman, Clari Crews, Norberto Arreola and colleagues, with an educational paco from [employer]. Review of Systems Const Details: [employer] optical eye exam last year Physical exam (Primary Care) Vital Signs: Last Vital Signs Temp 98.1 F 06/30/25 08:36 Pulse 75 06/30/25 08:36 Resp 16 06/30/25 08:36 BP 100/70 06/30/25 08:36 Pulse Ox 98 06/30/25 08:36 Oxygen Delivery Method Room Air 06/30/25 08:36 BMI result Body Mass Index 34.0 Tobacco/Smoking Status: Tobacco use Status Tobacco use date assessed 06/30/25 06/30/25 08:36 Patient Tobacco Use Status Never used Tobacco 06/30/25 08:32 e-Cigarette/Vaping Use Never Used 06/30/25 08:32 PHQ-9: PHQ-9 Score PHQ-9: Total score 0 06/30/25 08:32 Thrive Assessment: Date of Thrive Assessment Date Thrive assessed 08/15/24 06/30/25 08:32 Currently or been in a relationship where the following occur: No concerns reported Office Procedures Flu Questionnaire Does the patient have a severe egg allergy?: No Does the patient have severe life threatening allergies?: No Does the patient have a fever or illness today?: No Has the patient ever had Guillain-[place] Syndrome?: No Has the patient ever had any past reaction to a flu shot?: No Immunizations Fluarix [id number] (PF) 45 mcg (15 mcg x 3)/0.5 mL IM syringe Performing Provider: Deepali Juarez MD Performing Location: [facility] Administered by: Christine Curran CMA on 06/30/25 08:58 Dose Route Admin Location Dispensed Lot Number Expiration Date NDC Pattern Changer 0.5 mL IM Right Deltoid 0.5 mL [id number] 01/26/26 [id number] Teepix VIS Given Date VIS Provided VIS Publication Date 06/30/25 Single Vaccine 24 Eligibility Eligibility Date Funding Source Not [facility] Eligible 06/30/25 Private Coding Level of Care Code Est Pt Prev Care 40-64y(60100) Diagnoses Annual visit for general adult medical examination with abnormal findings Z00.01 Family history of Hodgkin's lymphoma Z80.7 Family history of thyroid disease Z83.49 Varicose veins of bilateral lower extremities with other complications I83.893 Advance directive discussed with patient Z71.89 Assessment & Plan Assessment & Plan (1) Annual visit for general adult medical examination with abnormal findings: Code(s): Z00.01 - Encounter for general adult medical examination with abnormal findings (2) Family history of Hodgkin's lymphoma: Code(s): Z80.7 - Family history of other malignant neoplasms of lymphoid, hematopoietic and related tissues Category: Medical (3) Family history of thyroid disease: Code(s): Z83.49 - Family history of other endocrine, nutritional and metabolic diseases Category: Medical (4) Varicose veins of bilateral lower extremities with other complications: Code(s): I83.893 - Varicose veins of bilateral lower extremities with other complications Category: Medical (5) Advance directive discussed with patient: Code(s): Z71.89 - Other specified counseling Plan: Initiated the conversation about Advanced Directives. Advanced Directives help patients prepare for current and future decisions about their medical treatment and place of care. Discussed with patient that it is a process where a patients current condition and prognosis are reviewed, their wishes for information regarding their illness are elicited, and likely medical dilemmas are presented and options discussed. Health care proxy form completed. The form can be amended as needed, reviewed yearly and make changes as needed Orders: Orders Complete Blood Count Auto Diff Today Z13.1 - Encounter for screening for diabetes mellitus, Z13.220 - Encounter for screening for lipoid disorders, Z80.7 - Family history of other malignant neoplasms of lymphoid, hematopoietic and related tissues, Z83.49 - Family history of other endocrine, nutritional and metabolic diseases Basic Metabolic Panel Fasting Today Z13.1 - Encounter for screening for diabetes mellitus, Z13.220 - Encounter for screening for lipoid disorders, Z80.7 - Family history of other malignant neoplasms of lymphoid, hematopoietic and related tissues, Z83.49 - Family history of other endocrine, nutritional and metabolic diseases Aspartate Amino Transferase Today Z13.1 - Encounter for screening for diabetes mellitus, Z13.220 - Encounter for screening for lipoid disorders, Z80.7 - Family history of other malignant neoplasms of lymphoid, hematopoietic and related tissues, Z83.49 - Family history of other endocrine, nutritional and metabolic diseases Influenza [id number] Immunization Today Z23 - Encounter for immunization Lipid Panel Today Z13.1 - Encounter for screening for diabetes mellitus, Z13.220 - Encounter for screening for lipoid disorders, Z80.7 - Family history of other malignant neoplasms of lymphoid, hematopoietic and related tissues, Z83.49 - Family history of other endocrine, nutritional and metabolic diseases Alanine Aminotransferase Today Z13.1 - Encounter for screening for diabetes mellitus, Z13.220 - Encounter for screening for lipoid disorders, Z80.7 - Family history of other malignant neoplasms of lymphoid, hematopoietic and related tissues, Z83.49 - Family history of other endocrine, nutritional and metabolic diseases Vitamin D 25-OH Total Today Z13.1 - Encounter for screening for diabetes mellitus, Z13.220 - Encounter for screening for lipoid disorders, Z80.7 - Family history of other malignant neoplasms of lymphoid, hematopoietic and related tissues, Z83.49 - Family history of other endocrine, nutritional and metabolic diseases TSH reflex Free T4 Today Z13.1 - Encounter for screening for diabetes mellitus, Z13.220 - Encounter for screening for lipoid disorders, Z80.7 - Family history of other malignant neoplasms of lymphoid, hematopoietic and related tissues, Z83.49 - Family history of other endocrine, nutritional and metabolic diseases
[2025-06-30 08:36] VITALS: BP 100/70; PULSE 75; RESP 16; TEMP 36.7; O2SAT 98; BMI 34.0
== END 2025-06-30 09:34 | disposition home or self-care (01) ==
LOC: HO.HMCC 08:20
PROVIDERS: PCP Internal Medicine; Visit Provider Internal Medicine
DX: Z23 Encounter for immunization (principal)

== ENCOUNTER → 2025-06-30 08:20 | Outpatient (BNVA) | payer OTHER, SELFPAY | PROVIDERS: PCP Internal Medicine; Visit Provider Internal Medicine | DX: Z00.01 Encounter for general adult medical examination with abnormal findings (principal); J30.9 Allergic rhinitis, unspecified; I83.893 Varicose veins of bilateral lower extremities with other complications; Z23 Encounter for immunization; Z71.89 Other specified counseling; Z83.49 Family history of other endocrine, nutritional and metabolic diseases | CPT/HCPCS: 90471; 90656; 96127 ==